=== PATIENT | female | born 1965 | race Caucasian/White ===

== ENCOUNTER 2017-08-18 10:08 | Outpatient (CLI) | payer MEDICARE, BC ==
--- NOTE | 2017-08-18 11:50 | RAD ---
TWO VIEWS OF THE CHEST: COMPARISON: None. HISTORY: Dyspnea. FINDINGS: Two views of the chest show normal sized cardiomediastinal silhouette. There is no evidence of consol idation, mass, or pleural effusion. The bones are unremarkable. IMPRESSION: No evidence of acute cardiopulmonary disease. POS: [facility]
== END 2017-08-18 10:09 | disposition home or self-care (01) ==
LOC: RAD 10:08
PROVIDERS: ATTEND Internal Medicine Critical Care Medicine
DX: R06.00 Dyspnea, unspecified (principal)
CPT/HCPCS: 71046

== ENCOUNTER 2017-10-24 11:47 | Emergency (ER) | payer MEDICARE, BC ==
[2017-10-24] MEDS ORDERED: HYDROcodone/Acetaminophen 10/325 mg Tablet ONE (13:21)
[2017-10-24] MEDS ORDERED: Diazepam 5 MG TAB ONE (13:21)
--- NOTE | 2017-10-24 14:50 | CT ---
CT CERVICAL SPINE WITHOUT CONTRAST: Date: 10/24/17 INDICATION: Neck pain with history of fall. FINDINGS: No definite acute fracture or subluxation is evident. There is straightening of normal cervical lordo sis. There is advanced disc degenerative disease at C5-6 and C6-7. There is nonspecific focal area of ground-glass opacity within the apical segment of the right upper lobe on image 68, series 3. There is a sub-4.0 mm pulmonary nodule within the left upper lobe on image 66, series 3, measuring 3.6 mm. Craniocervical junction is normal appearing. Prevertebral soft tissues otherwise are normal appearing . IMPRESSION: 1. No acute fracture or subluxation is evident. 2. Mild spondylosis cervical spine. 3. Nonspecific ground-glass opacity within the right upper lobe may reflect an infectious or inflamm atory pneumonitis. Contusion is felt to be less likely. Adenocarcinoma of the lung cannot be entirely excluded. Would recommend a follow-up CT evaluation in 6 weeks to document stability or resolution. 4. Sub-4.0 mm left upper lobe subpleural pulmonary nodule. 5. Mild spondylosis cervical spine. CODE LN. POS: [facility]
--- NOTE | 2017-10-24 14:57 | CT ---
CT LUMBAR SPINE WITHOUT CONTRAST: INDICATION: Low back pain onset for 7 days. History of fall. COMPARISON: None. FINDINGS: No acute fracture or subluxation is evident. There is vacuum-disk phenomenon at L5-S1. There is los s of disk space height and facet hypertrophy inducing moderate right neural foraminal narrowing at L4 -5 and L5-S1. There is also mild to moderate left neural foraminal narrowing at L4-5 with moderate l eft neural foraminal narrowing at L5-S1. No appreciable osseous central canal or neural foraminal na rrowing is evident. The visualized retroperitoneum and paravertebral soft tissues appear within normal limits. The gallb ladder is surgically absent. There are scattered vascular calcifications. IMPRESSION: 1. No acute fracture or subluxation is evident. Spondylosis of the lumbar spine with osseous neural foraminal narrowing is seen at L4-5 and L5-S1. 2. Vacuum disk phenomenon at L5-S1 can be seen with disk instability. POS: [facility]
[2017-10-24] MEDS ORDERED: Ketorolac Tromethamine 60 MG/2 ML VIAL ONE (15:41)
== END 2017-10-24 15:50 | disposition home or self-care (01) ==
LOC: ERS 11:47
DX: M54.5 Low back pain (principal); M54.2 Cervicalgia; J45.909 Unspecified asthma, uncomplicated; K21.9 Gastro-esophageal reflux disease without esophagitis; E78.5 Hyperlipidemia, unspecified; F32.9 Major depressive disorder, single episode, unspecified; Z87.891 Personal history of nicotine dependence; Z79.899 Other long term (current) drug therapy
CPT/HCPCS: 72125; 72131; 96372; J1885

== ENCOUNTER 2017-10-30 12:47 | Outpatient (CLI) | payer MEDICARE, BC | END 2017-10-30 12:48 | disposition home or self-care (01) | LOC: BICMAMMO 12:47 | PROVIDERS: ATTEND Obstetrics & Gynecology | DX: Z12.31 Encounter for screening mammogram for malignant neoplasm of breast (principal); Z80.3 Family history of malignant neoplasm of breast | CPT/HCPCS: 77063; 77067 ==

== ENCOUNTER 2017-11-26 14:11 | Outpatient (CLI) | payer MEDICARE, BC ==
[~2017-11-26 14:11] MED LIST: Gadobenate Dimeglumine 529 MG/1 ML (20ML VIAL) ONE
== END 2017-11-26 14:12 | disposition home or self-care (01) ==
LOC: BICMRI 14:11
PROVIDERS: ATTEND Neurological Surgery
DX: M51.17 Intervertebral disc disorders with radiculopathy, lumbosacral region (principal); M47.22 Other spondylosis with radiculopathy, cervical region; M50.120 Mid-cervical disc disorder, unspecified level; M46.96 Unspecified inflammatory spondylopathy, lumbar region; M99.83 Other biomechanical lesions of lumbar region; Z98.1 Arthrodesis status; M99.81 Other biomechanical lesions of cervical region
CPT/HCPCS: 72040; 72141; 72158; A9579

== ENCOUNTER 2018-03-19 12:18 | Outpatient (CLI) | payer MEDICARE, BC ==
--- NOTE | 2018-03-19 14:22 | CT ---
CT CHEST WITHOUT CONTRAST: HISTORY: R91.8, pulmonary nodule. COMPARISON: Chest radiograph of 08/18/2017. FINDINGS: There is a focal ground-glass opacity in the right upper lobe that has the appearance of resolving in fection. No solid nodule component is appreciated. There is a somewhat flame-shaped and contained b y secondary interlobular septa. There is a 3 mm pulmonary nodule on the superior segment right lower lobe. The left lung is clear. No pneumothorax. No effusion. No adenopathy. No pericardial effusion. The upper abdomen is unremarkable. Prior cholecystectomy. No acute osseous abnormality. No suggestion of rib fracture. No thoracic spine fracture. IMPRESSION: Ground-glass opacities in the right upper lobe contained with a few peripheral interlobular septa adair t has the appearance of resolving infection. Followup CT in 6-12 months can be obtained to document resolution. POS: [facility]
== END 2018-03-19 12:19 | disposition home or self-care (01) ==
LOC: BICCT 12:18
PROVIDERS: ATTEND Internal Medicine Critical Care Medicine
DX: R91.1 Solitary pulmonary nodule (principal); R91.8 Other nonspecific abnormal finding of lung field
CPT/HCPCS: 71250

== ENCOUNTER 2018-07-30 12:45 | Outpatient (CLI) | payer MEDICARE, BC ==
--- NOTE | 2018-07-30 14:26 | RAD ---
CHEST 2 VIEWS: DATE: 07/30/2018. COMPARISON: None. HISTORY: Short of breath. FINDINGS: No pneumothorax, pleural fluid, focal consolidation, or alveolar edema. Heart and mediastinal contou rs are stable. Stable mild increased linear interstitial density. Clips in the right upper quadrant suggest prior cholecystectomy. IMPRESSION: No acute findings. POS: [facility]
== END 2018-07-30 12:46 | disposition home or self-care (01) ==
LOC: RAD 12:45
PROVIDERS: ATTEND Internal Medicine Critical Care Medicine
DX: R06.00 Dyspnea, unspecified (principal)
CPT/HCPCS: 71046

== ENCOUNTER 2018-07-30 14:01 | Emergency (ER) | payer MEDICARE, BC | END 2018-07-30 15:40 | disposition left against medical advice (07) | LOC: ERS 14:01 | DX: Z53.21 Procedure and treatment not carried out due to patient leaving prior to being seen by health care provider (principal) | CPT/HCPCS: 71046; 93005 ==

== ENCOUNTER 2018-09-16 10:30 | Outpatient (CLI) | payer MEDICARE, BC ==
--- NOTE | 2018-09-16 11:22 | CT ---
CT Chest WO Con HISTORY: Follow-up pulmonary nodule COMPARISON: 03/19/2018 exam FINDINGS: On the previous examination there is some groundglass density seen within the right upper l obe, these changes have almost completely resolved still very minimal residual change remaining. No soft tissue solid component seen associated with these changes. No pleural effusions. No significant mediastinal, hilar or axillary adenopathy. Visualized liver parenchyma is normal. The gallbladder has been IMPRESSION: Almost complete resolution of the groundglass opacities within the right upper lobe.
== END 2018-09-16 10:31 | disposition home or self-care (01) ==
LOC: BICCT 10:30
PROVIDERS: ATTEND Internal Medicine Critical Care Medicine
DX: J18.9 Pneumonia, unspecified organism (principal)
CPT/HCPCS: 71250

== ENCOUNTER 2019-04-15 12:06 | Emergency (ER) | payer MEDICARE, BC ==
[2019-04-15 12:44] LABS: #Basophils 0.1 thou/uL (0.0-0.2); #Eosinphils 0.6 thou/uL (0.0-0.7); #Lymphocytes 2.4 thou/uL (1.20-3.40); #Monocytes 0.8 thou/uL (0.11-0.59); #Neutrophils 4.2 thou/uL (1.40-6.50); %Basophils 0.8 % (0.0-1.0); %Eosinophils 7.5 % (0.0-10.0); %Lymphocytes 29.9 % (21.0-51.0); %Monocytes 9.5 % (0.0-10.0); %Neutrophils 52.3 % (42.0-75.0); Hemoglobin 17.8 g/dL (12.0-16.0); Mean Corpuscular HGB CONC 33.3 g/dL (32.0-36.0); Mean Corpuscular Volume 93.2 fL (78.0-98.0); Mean Platelet Volume 8.1 fL (7.4-10.4); Platelet Count 275 thou/uL (130-400); RBC Distribution Width 11.6 % (11.5-14.5); Red Blood Cell (RBC) Count 5.73 mill/uL (4.20-5.40)
[2019-04-15] MEDS ORDERED: Morphine 4 MG/ML VIAL ONE (12:49)
[2019-04-15] MEDS ORDERED: Ondansetron PF 4 MG/2 ML Vial ONE (12:49)
[2019-04-15 13:04] LABS: ALT (SGPT) 48 U/L (8-55); AST (SGOT) 40 U/L (5-34); Albumin 5.2 g/dL (3.5-5.0); Alkaline Phosphatase 75 U/L (40-110); Anion Gap 15 mmol/L (10-20); BUN (Urea Nitrogen) 8 mg/dL (9.8-20.1); Bilirubin, Total 0.8 mg/dL (0.2-1.2); Calc. Creatinine Clearance 0 mL/min (70-130); Calcium 10.4 mg/dL (7.8-10.44); Carbon Dioxide 27 mmol/L (22-29); Chloride 102 mmol/L (98-107); Estimated GFR-MDRD 72; Globulin 2.8 g/dL (2.4-3.5); Glucose 94 mg/dL (70-105); Lipase 12 U/L (8-78); Potassium 4.1 mmol/L (3.5-5.1); Sodium 140 mmol/L (136-145)
[2019-04-15] MEDS ORDERED: Fentanyl 100 MCG/2 ML VIAL ONE (13:51)
[2019-04-15 14:03] LABS: Bilirubin Negative (Negative); Blood, Urine Negative (Negative); Clarity Clear (Clear); Glucose, Urine (Dipstick) Normal (Negative); Leukocyte Negative Leu/uL (Negative); Nitrite Negative (Negative); Protein, Urine (Dipstick) Negative (Neg-Trace); Urobilinogen Normal mg/dL (Less than 2)
[2019-04-15] MEDS ORDERED: Iopamidol 370 76% 50 ML VIAL FS ONE (14:55)
[2019-04-15] MEDS ORDERED: Iopamidol-370 76% 500 ML 1 ML ONE (14:55)
--- NOTE | 2019-04-15 15:05 | CT ---
CT OF THE ABDOMEN AND PELVIS WITH IV CONTRAST INDICATION: Stabbing abdominal pain within the lower abdomen with constipation COMPARISON: 4 FINDINGS: ABDOMEN: Lung bases: Clear Liver: Mild intrahepatic and extra hepatic biliary ductal dilatation. Gallbladder: Surgically absent Pancreas: Normal. Adrenal glands: Normal. Spleen: Normal. Kidneys and ureters: Normal. No hydronephrosis. Vasculature: There are mild vascular calcifications seen involving the visualized vasculature. Lymph nodes:No lymphadenopathy. Free fluid in abdomen:No free fluid is evident. PELVIS: Small and large bowel: There is fluid density seen within the descending colon, sigmoid colon and rec gt. Small bowel is of normal caliber. Appendix:Not visualized Bladder: Normal. Rectal and perirectal soft tissues:Normal. Reproductive structures: Not visualized Free fluid in pelvis: No free fluid is evident. Lymphadenopathy pelvis: No lymphadenopathy is evident. Osseous structures: No acute osseous abnormality. No destructive osteolytic or osteoblastic lesion i s identified. There is scattered degenerative and osteoarthritic changes. Soft tissues:Normal. IMPRESSION: 1. Fluid density within the colon may reflect a diarrheal states or mild colitis. 2. Cystectomy, appendectomy and hysterectomy
== END 2019-04-15 16:53 | disposition home or self-care (01) ==
LOC: ERS 12:06
DX: K52.9 Noninfective gastroenteritis and colitis, unspecified (principal); J45.909 Unspecified asthma, uncomplicated; K21.9 Gastro-esophageal reflux disease without esophagitis; E78.5 Hyperlipidemia, unspecified; F41.9 Anxiety disorder, unspecified; F32.9 Major depressive disorder, single episode, unspecified; F17.200 Nicotine dependence, unspecified, uncomplicated; Z79.899 Other long term (current) drug therapy
CPT/HCPCS: 74177; 80053; 81003; 83690; 85025; 96361; 96374; 96375; J2270; J2405; J3010; Q9967

== ENCOUNTER 2019-12-10 05:28 | Outpatient (CLI) | payer MEDICARE, BC, OTHER ==
[2019-12-10 14:03] LABS: #Eosinphils 0.6 thou/uL (0.0-0.7); #Lymphocytes 1.6 thou/uL (1.20-3.40); #Monocytes 0.5 thou/uL (0.11-0.59); #Neutrophils 3.1 thou/uL (1.40-6.50); %Basophils 0.7 % (0.0-1.0); %Eosinophils 10.9 % (0.0-10.0); %Lymphocytes 26.7 % (21.0-51.0); %Monocytes 8.5 % (0.0-10.0); %Neutrophils 53.2 % (42.0-75.0); Hemoglobin 15.4 g/dL (12.0-16.0); Mean Corpuscular HGB CONC 33.9 g/dL (32.0-36.0); Mean Corpuscular Hemoglobin 32.6 pg (27.0-31.0); Mean Corpuscular Volume 96.1 fL (78.0-98.0); Mean Platelet Volume 8.6 fL (7.4-10.4); Platelet Count 190 thou/uL (130-400); RBC Distribution Width 11.8 % (11.5-14.5); Red Blood Cell (RBC) Count 4.71 mill/uL (4.20-5.40); White Blood Cell (WBC) Count 5.9 thou/uL (4.8-10.8)
[2019-12-10 14:12] LABS: Anion Gap 13 mmol/L (10-20); BUN (Urea Nitrogen) 15 mg/dL (9.8-20.1); Calc. Creatinine Clearance 0 mL/min (70-130); Calcium 9.8 mg/dL (7.8-10.44); Carbon Dioxide 26 mmol/L (22-29); Chloride 105 mmol/L (98-107); Estimated GFR-MDRD 73; Glucose 108 mg/dL (70-105); Potassium 4.1 mmol/L (3.5-5.1); Sodium 140 mmol/L (136-145)
[2019-12-11 14:40] LABS: SARS-CoV-2 MS2 Positive; SARS-CoV-2 N Gene Negative; SARS-CoV-2 S Gene Negative; SARS-CoV-2 by NAA Not Detected (NotDetected); SARS-CoV-2 orf1ab Negative
== END 2019-12-10 05:29 | disposition home or self-care (01) ==
LOC: LABBT 05:28
PROVIDERS: ATTEND Surgery
DX: Z01.812 Encounter for preprocedural laboratory examination (principal); Z11.59 Encounter for screening for other viral diseases; K42.9 Umbilical hernia without obstruction or gangrene; K40.90 Unilateral inguinal hernia, without obstruction or gangrene, not specified as recurrent
CPT/HCPCS: 80048; 85025; U0003; 87635

== ENCOUNTER → 2019-12-14 | Day surgery (SDC) | payer MEDICARE, BC ==
[2019-12-09 10:26] VITALS: BMI 23.3
[~2019-12-14] MED LIST changes: +Bupivacaine 0.25% HCL 30 ML VIAL ONE; +Bupivacaine PF 0.5% 30 ML VIAL ONE; +Dexamethasone 20 MG/5 ML VIAL ONE; +EPHEDRINE 25 MG/5 ML SYRINGE ONE; +Fentanyl 100 MCG/2 ML VIAL ONE; -Gadobenate Dimeglumine 529 MG/1 ML (20ML VIAL) ONE; +Ketorolac Tromethamine 30 MG/ML VIAL ONE; +Lidocaine 1% PF 5 ML VIAL ONE; +Lidocaine 1% w/Epinephrine 1:100K 20 ML VIAL ONE; +Ondansetron PF 4 MG/2 ML Vial ONE; +PROPOFOL 200 MG/20 ML VIAL ONE; +Succinylcholine Chloride 20 MG/ML 10 ml SYRINGE FS ONE
--- NOTE | 2019-12-15 01:59 | OP ---
DATE OF PROCEDURE: 12/14/2019 PREOPERATIVE DIAGNOSES: Right inguinal hernia, umbilical hernia. POSTOPERATIVE DIAGNOSES: Right inguinal hernia, umbilical hernia. PROCEDURE PERFORMED: Right inguinal hernia repair with mesh, umbilical hernia repair with mesh. ANESTHESIA: General. ESTIMATED BLOOD LOSS: Minimal. COMPLICATIONS: None. SPECIMEN: None. FINDINGS: Right direct and femoral hernias present as well as umbilical hernia. TECHNIQUE: Patient was taken to the operating room and laid supine on the operating room table. After general anesthetic was obtained, the abdomen and groins were shaved, prepped, and draped in a sterile fashion. An oblique incision was made above the pubic tubercle in the right lower quadrant. Cautery was used to dissect down through Kely's to expose the external oblique. External oblique fibers were opened along the course of the external ring. Contents of the inguinal canal were dissected from the backside of the external oblique. The round ligament was found and high ligated. There was no indirect hernia sac. There was a defect in the floor of the inguinal canal. This was entered and bluntly dissected using a wet unraveled Ray-Kit. The PHS extended mesh was brought onto the sterile field and the underlay was placed in the preperitoneal space. The overlay was laid in the floor of the inguinal canal. The overlay was sewn distally to the pubic tubercle, medially to the transverse arch, lateral to shelving edge of inguinal ligament using permanent braided suture. The extra mesh was tacked back down to the external oblique proximally. Dissection below the inguinal canal then revealed there to be a small femoral hernia. A small piece of polypropylene mesh was rolled into a cylinder and placed into the femoral canal. It was sewn anteriorly to the shelving edge of inguinal ligament. The wounds were all irrigated. Tunnel catheter for postop pain was inserted above incision, left on top of the mesh. External oblique was closed using 3-0 Vicryl, Kely's was closed using 3-0 Vicryl, skin was closed with running 4-0 Monocryl and Dermabond. Next, a curved incision was made below the umbilicus. Cautery was used to dissect down to and the umbilical stalk was amputated exposing the umbilical defect. The edges of the defect were freshened and the preperitoneal space was bluntly dissected through the defect. The small Ventralex ST mesh was brought into the sterile field. The underlay was placed in this preperitoneal space. The tails were laid out lateral. The tails were sewn the U-stitch of permanent braided suture to the edges of the fascia. The tails were cut at the level of the fascia. The fascia was closed loosely over the mesh. The umbilical stalk was tacked back down using 3-0 Vicryl. The subcutaneous tissues were irrigated. Local anesthetic was applied. Subcutaneous tissues were closed using 3-0 Vicryl, 4-0 Monocryl, and Dermabond. Patient was sent to Recovery in stable condition. All instrument counts, needle counts, and lap counts were correct. Job ID: [id number]
== END ==
LOC: SDC 06:00
PROVIDERS: ATTEND Surgery
PROC: 0YU50JZ Supplement Right Inguinal Region with Synthetic Substitute, Open Approach (ICD-10-PCS; principal; 2019-12-14)
PROC: 0YU70JZ Supplement Right Femoral Region with Synthetic Substitute, Open Approach (ICD-10-PCS; 2019-12-14)
PROC: 0WUF0JZ Supplement Abdominal Wall with Synthetic Substitute, Open Approach (ICD-10-PCS; 2019-12-14)
DX: K40.90 Unilateral inguinal hernia, without obstruction or gangrene, not specified as recurrent (principal); K42.9 Umbilical hernia without obstruction or gangrene; K41.90 Unilateral femoral hernia, without obstruction or gangrene, not specified as recurrent; F32.9 Major depressive disorder, single episode, unspecified; F41.9 Anxiety disorder, unspecified; E78.5 Hyperlipidemia, unspecified; K21.9 Gastro-esophageal reflux disease without esophagitis; Z87.891 Personal history of nicotine dependence; Z79.899 Other long term (current) drug therapy; Z88.5 Allergy status to narcotic agent; Z88.8 Allergy status to other drugs, medicaments and biological substances
CPT/HCPCS: C1781; J0690; J1100; J1885; J2405; J2704; J3010; S0020

== ENCOUNTER 2020-01-05 11:45 | Outpatient (CLI) | payer MEDICARE, BC ==
--- NOTE | 2020-01-05 12:21 | RAD ---
6 views of the cervical spine: 01/05/2020 COMPARISON: None available HISTORY: Pain, radiculopathy FINDINGS: There is disc space narrowing with degenerative endplate change and anterior osteophyte for mation at C5-6 and C6-7. Mild posterior osteophyte noted at C5-6. No anterolisthesis or retrolisthesis is noted on the neutral lateral view. Flexion imaging demonstrat es mild anterolisthesis at C2-3 measuring 3 mm and C4-5 measuring 2 mm. On the extension imaging there is retrolisthesis at C3-4 measuring 2-3 mm. No prevertebral soft tissue swelling. No acute frac ture or dislocation. There is mid cervical spine facet and uncovertebral osteophyte formation, most prominent on the left at C4-5. The open-mouth odontoid view demonstrates a normal-appearing dens and C1-2 articulation. The Fuchs vi ew appears unremarkable. IMPRESSION: Multilevel cervical spine degenerative change as detailed above.
--- NOTE | 2020-01-05 12:22 | RAD ---
Lumbar spine 4 views: 01/05/2020 COMPARISON: None available HISTORY: Lumbosacral radiculopathy FINDINGS: Cholecystectomy clips are noted in the right upper quadrant. Pedicles appear intact on the frontal view. There is mild disc space narrowing at L4-5 and L5-S1. There is facet hypertrophy bilaterally at L3-4, L4-5, and L5-S1. On the neutral lateral imaging there is mild L4-5 anterolisthes is measuring in the 4 mm range. This is not significantly changed on the flexion view and is slightly decreased on the extension view. No acute osseous abnormality. IMPRESSION: Lumbar spine degenerative change as detailed above.
--- NOTE | 2020-01-05 13:27 | MRI ---
MRI of thecervical spine: 01/05/2020 COMPARISON:None available HISTORY:Cervical disc disorder, radiculopathy with neck pain TECHNIQUE: Multiplanar multisequence MR imaging of thecervical spine without contrast Findings:The sagittal STIR imaging demonstrates no focal area of osseous marrow edema. There is moder ate degenerative change at the atlantoaxial interspace. C2-3: Left-sided facet and uncovertebral osteophyte formation causes moderate left neural foraminal s tenosis. No significant central canal or right neural foraminal stenosis. C3-4: Mild disc bulge with no central canal stenosis. Mild left facet hypertrophy. No significant charanjit ral foraminal stenosis. C4-5: There is disc space narrowing and disc desiccation with minimal disc bulge partially effacing t he ventral thecal sac and causing mild central canal stenosis. Left-sided facet and uncovertebral osteophyte formation leads to moderate left neural foraminal stenosis. No significant right neural fo raminal stenosis. C5-6: There is disc space narrowing with disc desiccation and disc bulge effacing the ventral thecal sac and causing a mild/moderate degree of central canal stenosis. Bilateral facet and uncovertebral osteophyte formation noted with mild right and moderate left neural foraminal stenosis. C6-7: There is disc space narrowing with disc desiccation and mild disc bulge. Anterior osteophyte fo rmation noted. Facet and uncovertebral osteophyte formation on the left causes severe left neural foraminal stenosis. There is mild right neural foraminal stenosis. C7-T1: No significant central canal or neural foraminal stenosis. No focal area of abnormal signal intensity identified within the cervical cord. IMPRESSION:Cervical spine degenerative change as detailed above.
--- NOTE | 2020-01-05 13:57 | MRI ---
MRI thoracic spine noncontrast: 01/05/2020 HISTORY: 54-year-old female with thoracic spine pain, chronic COMPARISON: 10/05/2014 FINDINGS: Again noted on the hemangiomas of bone (venous malformations of bone) at the T1 and T5 vertebral bodi es. Otherwise, bone marrow signal is normal, with no edema. Vertebral body heights are maintained. Thoracic spinal cord is normal in size and signal. No syrinx. No high-grade central spinal canal sten osis or high-grade neural foraminal stenosis at any level. At T8-9, a tiny central disc protrusion with tiny annular fissure, which does not impinge on the spinal cord degenerative thickening of bilat eral ligamentum flavum, possibly with calcification, at T3-4 encroach upon right neural foramen, abutting the exiting right T3 nerve root. To a slightly lesser degree, contralateral similar finding in left T3-4 neural foramen and bilateral T4-5 neural foramina. No major interval change overall. Anterior and posterior perivertebral spaces are unremarkable. IMPRESSION: 1.) Scattered minimal degenerative changes. 2) no major pathology
--- NOTE | 2020-01-05 14:41 | MRI ---
MR the lumbar spine without contrast: 01/05/2020 History: Lumbar radiculopathy, back pain radiating down the right lower extremity COMPARISON: None available TECHNIQUE: Multiplanar multisequence MR images were obtained of lumbar spine without IV contrast FINDINGS: On the basis of 5 lumbar type vertebral bodies, conus medullaris terminates at theL1 level. Sagittal STIR imaging demonstrates no focal area of osseous marrow edema. T12-L1:Mild disc space narrowing and bilateral facet hypertrophy with no significant central canal or neural foraminal stenosis L1-2:Mild right facet hypertrophy. No central canal or neural foraminal stenosis L2-3:Unremarkable L3-4:Moderate bilateral facet hypertrophy and hypertrophy of the ligamentum flavum, right greater adair n left. There is disc space narrowing with disc desiccation. Mild central canal stenosis. No significant neural foraminal stenosis L4-5:Bilateral facet hypertrophy, left greater than right. There is disc space narrowing with disc de siccation and mild disc bulge. No significant central canal stenosis. Mild bilateral neural foraminal stenosis L5-S1:Bilateral facet hypertrophy, left greater than right. Moderate left neural foraminal stenosis. No significant central canal or right neural foraminal stenosis. There is disc space narrowing with disc desiccation, most prominent laterally on the left. There is lateral left-sided osteophyte format ion as well. Image retroperitoneal structures demonstrateno acute findings. IMPRESSION: Lumbar spine degenerative change as detailed above
== END 2020-01-05 11:46 | disposition home or self-care (01) ==
LOC: BICMRI 11:45
PROVIDERS: ATTEND Nurse Practitioner Family
DX: M54.6 Pain in thoracic spine (principal); M47.22 Other spondylosis with radiculopathy, cervical region; M50.120 Mid-cervical disc disorder, unspecified level; M47.816 Spondylosis without myelopathy or radiculopathy, lumbar region; M47.814 Spondylosis without myelopathy or radiculopathy, thoracic region
CPT/HCPCS: 72050; 72110; 72141; 72146; 72148

== ENCOUNTER 2020-08-14 14:01 | Outpatient (CLI) | payer MEDICARE, BC | END 2020-08-14 14:02 | disposition home or self-care (01) | LOC: BICMAMMO 14:01 | PROVIDERS: ATTEND Advanced Practice Midwife | DX: Z13.820 Encounter for screening for osteoporosis (principal); Z78.0 Asymptomatic menopausal state | CPT/HCPCS: 77080 ==

== ENCOUNTER 2022-07-10 09:20 | Outpatient (CLI) | payer MEDICARE, BC | END 2022-07-10 09:21 | disposition home or self-care (01) | LOC: RAD 09:20 | PROVIDERS: ATTEND Internal Medicine Critical Care Medicine | DX: R06.00 Dyspnea, unspecified (principal) | CPT/HCPCS: 71046 ==

== ENCOUNTER 2023-03-27 06:55 | Outpatient (CLI) | payer MEDICARE, BC | END 2023-03-27 06:56 | disposition home or self-care (01) | LOC: BICMRI 06:55 | PROVIDERS: ATTEND Specialist | DX: M47.22 Other spondylosis with radiculopathy, cervical region (principal) | CPT/HCPCS: 72141 ==

== ENCOUNTER 2023-12-03 09:50 | Outpatient (CLI) | payer MEDICARE, BC | END 2023-12-03 09:51 | disposition home or self-care (01) | LOC: BICMRI 09:50 | PROVIDERS: ATTEND Nurse Practitioner Family | DX: M47.24 Other spondylosis with radiculopathy, thoracic region (principal) | CPT/HCPCS: 72146 ==